=== PATIENT | male | born 1990 ===

== ENCOUNTER 2018-05-08 14:09 | Emergency (ER) | payer OTHER ==
--- NOTE | 2018-05-08 15:28 | ED PDOC ---
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 Pt says he first noticed a couple of puncture-like lesion on the right and lateral aspect of his neck. States it became very itchy and began to grow into a raised plaque after scratching and treating it with H202. Says over the course of a week, the rash spread to the scalp, arms, trunk and face. Reports the house he is demolishing has bed bugs, rats and cockroaches; pt reports having a new rabbit at home for the past week and cleans the cage daily. Denies fever chill, sob, cp, nausea, vomiting or diarrhea, insect bite, contact with shrubs travel or any other contributing factors. (Lyndsey Garcias) Past Medical History - Provider Review Nursing Documentation Reviewed: Yes - Travel History Have you recently traveled outside [place] w/in the past 3 mons?: No - Infectious Disease Hx of Infectious Diseases: None - Psychiatric Hx Substance Use: No - Anesthesia Hx Anesthesia: No Family/Social History - Physician Review Nursing Documentation Reviewed: Yes Family/Social History: Unknown Family HX Smoking Status: Former Smoker Hx Alcohol Use: No Frequency of alcohol use: Socially Hx Substance Use: No Allergies/Home Meds Allergies/Adverse Reactions: Allergies seasonal Allergy (Uncoded 05/08/18 14:26) CONGESTION Review of Systems - Review of Systems Constitutional: Normal. absent: Fatigue, Fevers Eyes: Normal. absent: Vision Changes ENT: Normal. absent: Hearing Changes Respiratory: Normal. absent: SOB, Cough, Sputum Cardiovascular: Normal. absent: Chest Pain Gastrointestinal: Normal. absent: Abdominal Pain Genitourinary Male: Normal. absent: Dysuria Musculoskeletal: Normal. absent: Arthralgias, Back Pain Skin: Rash, Pruritis, Skin Lesions, Cellulitis (right lateral neck) Neurological: Normal Endocrine: Normal Hemo/Lymphatic: Normal Psychiatric: Normal Physical Exam Temperature: Afebrile Blood Pressure: Normal Pulse: Regular Respiratory Rate: Normal Appearance: Positive for: Well-Appearing, Non-Toxic, Uncomfortable Pain Distress: None Mental Status: Positive for: Alert and Oriented X 3 - Systems Exam Head: Present: Atraumatic, Normocephalic Pupils: Present: PERRL Extroacular Muscles: Present: EOMI Conjunctiva: Present: Normal Mouth: Present: Moist Mucous Membranes Neck: Present: Normal Range of Motion. No: Meningeal Signs, MIDLINE TENDERNESS , Paraspinal Tenderness, Lymphadenopathy Respiratory/Chest: Present: Clear to Auscultation, Good Air Exchange. No: Respiratory Distress, Accessory Muscle Use, Wheezes, Decreased Breath Sounds, Rales, Retracting, Rhonchi, Tachypneic, Tender to Palpation Cardiovascular: Present: Regular Rate and Rhythm, Normal S1, S2. No: Murmurs Abdomen: No: Tenderness, Distention, Peritoneal Signs Back: Present: Normal Inspection Upper Extremity: Present: Normal Inspection, Normal ROM, NORMAL PULSES, Other ( multiple papules ranging in size from <1cm to large plaques). No: Cyanosis, Edema Lower Extremity: Present: Normal Inspection. No: Edema Neurological: Present: GCS=15, CN II-XII Intact, Speech Normal Skin: Present: Warm, Dry, Rashes (multiple papules that coalesce into plaques, dry except for recent excoriations), Normal Color, Erythematous, Other ( possible cellulitic area right lateral neck s/p repetitive excorations). No: Diaphoretic, Induration, Hot, Cold, Abscess Lymphatic: No: Cervical Adenopathy, Axillary Adenopathy Psychiatric: Present: Alert, Oriented x 3, Normal Insight, Normal Concentration , Normal Affect, Normal Mood Vital Signs Temp Pulse Resp BP Pulse Ox 05/08/18 17:43 98.5 F 72 18 126/72 99 05/08/18 14:21 98.4 F 80 18 105/84 98 Medical Decision Making ED Course and Treatment: 05/08/18 15:28 Impression Pt is a 28 yr old male with no PMH who presents with a generalized rash that started approximately one week ago after starting a house demolition. One exam, large erythematous plaque with excoriation at the center, defined border that extends toward the inferior and posterior aspects of the right lateral neck. Multiple small papules scattered over the face, scalp, arms, trunk with some coalescing into a plaque in area. No puncture wound visible over the primary site on the neck, no purulent discharge. 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 [place] (Lyndsey Garcias) - Medication Orders Current Medication Orders: Discontinued Medications Cephalexin Monohydrate (Keflex) 500 mg PO STAT STA PRN Reason: Protocol Stop: 05/08/18 15:43 Last Admin: 05/08/18 16:45 Dose: 500 mg Dexamethasone (Decadron Inj) 10 mg IM STAT STA Stop: 05/08/18 15:10 Last Admin: 05/08/18 15:45 Dose: 10 mg IM Administration Charges Document 05/08/18 15:45 HI (Rec: 05/08/18 15:45 HI [id number]) Injection Site MAR Injection Site Left Deltoid Charges for Administration # of IM Administrations 1 Diphenhydramine HCl (Benadryl) 50 mg PO STAT STA Stop: 05/08/18 15:21 Last Admin: 05/08/18 15:44 Dose: 50 mg Disposition/Present on Arrival - Present on Arrival Any Indicators Present on Arrival: Yes History of DVT/PE: No History of Uncontrolled Diabetes: No Urinary Catheter: No History of Decub. Ulcer: No History Surgical Site Infection Following: None - Disposition Have Diagnosis and Disposition been Completed?: Yes Disposition Time: 17:27 Patient Plan: Discharge - Disposition Diagnosis: Contact allergic reaction, Hypersensitivity reaction, Cellulitis Disposition: HOME/ ROUTINE Condition: STABLE Discharge Instructions (ExitCare): Contact Dermatitis (DC), Cellulitis (ED) Additional Instructions: JENNA SHELBY, thank you for letting us take care of you today. Your provider was Mateus Bautista MD and HOLLIS Garcias and you were treated for CONTACT DERMATITIS AND CELLULITIS. The emergency medical care you received today was directed at your acute symptoms. If you were prescribed any medication, please fill it and take as directed. It may take several days for your symptoms to resolve. Return to the Emergency Department if your symptoms worsen, do not improve, or if you have any other problems. PLEASE SEE THE LOGISTICS SUPPORT RECOMMENDED FOR FOLLOW UP CARE IN THE NEXT FEW DAYS. IF YOU EXPERIENCE WORSENING OF SYMPTOMS OR TROUBLE BREATHING, RETURN TO THE ER IMMEDIATELY Please contact your doctor or call one of the physicians/clinics you have been referred to that are listed on the Patient Visit Information form that is included in your discharge packet. Bring any paperwork you were given at discharge with you along with any medications you are taking to your follow up visit. Our treatment cannot replace ongoing medical care by a primary care provider outside of the emergency department. Thank you for allowing the [facility] team to be part of your care today. If you had an X-Ray or CT scan: A Radiologist will review the ED reading if any change in treatment is needed we will contact you. If you had a blood, urine, or wound culture: It will take several days for the results, if any change in treatment is needed we will contact you. Prescriptions: Cephalexin [Keflex] 500 mg PO Q6 5 Days #20 cap DiphenhydrAMINE [Benadryl] 25 mg PO Q8 #15 cap Hydrocortisone 59 ml TP Q6 #1 bottle Referrals: Chica Tyler MD [Primary Care Provider] - Follow up with primary Alfredo Sofia MD [Non-Staff] - Follow up with primary Forms: [employer] ([place]), WORK NOTE Addendum Addendum: 05/09/18 11:57 Pharmacist called regarding Hydrocortisone lotion. She asked me the strength, either 1 %, or 2.5%. I told that 1 % maybe better, since it has lower concentration. (Toby Blackman)
[2018-05-08 17:46] VITALS: BP 126/72; PULSE 72; RESP 18; TEMP 98.5; O2SAT 99
== END 2018-05-08 17:43 | disposition home or self-care (01) ==
LOC: ED 14:09 → MERGE 14:09 → ED 17:43
DX: T78.49XA Other allergy, initial encounter (principal); X58.XXXA Exposure to other specified factors, initial encounter; L03.818 Cellulitis of other sites
CPT/HCPCS: 96372; 99283; J1100

== ENCOUNTER 2018-05-11 15:47 | Emergency (ER) | payer OTHER ==
[2018-05-11 15:54] VITALS: BMI 36.6
[2018-05-11] MEDS ORDERED: DiphenhydrAMINE 50 mg/ml Inj IVP ONE (15:55)
[2018-05-11 15:59] VITALS: RESP 18
--- NOTE | 2018-05-11 16:00 | ED PDOC ---
Arrival/HPI - General Chief Complaint: Allergic Reaction Time Seen by Provider: 05/11/18 15:47 Historian: Patient, Other (Girlfriend) - History of Present Illness Time/Duration: Other (Approximately 10 days) Symptom Onset: Gradual Symptom Course: Worsening Severity Level: Severe Associated Symptoms (Text): 05/11/18 15:57 Patient complains of a severely pruritic rash for approximately 10 days. 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 He was seen in the emergency department and treated with IM Decadron and steroid lotion, but is getting worse. The rash is mostly on his right neck right upper extremity and right side and flank. Somewhat on his left upper extremity and minimally on the bilateral lower extremities. No dyspnea or dysphagia. He states that it becomes vesicle-like and pops with clear fluid. Appears consistent with a contact dermatitis. Past Medical History - Infectious Disease Hx of Infectious Diseases: None - Psychiatric Hx Substance Use: No - Anesthesia Hx Anesthesia: No Family/Social History - Physician Review Nursing Documentation Reviewed: Yes Family/Social History: Unknown Family HX Smoking Status: Former Smoker Hx Alcohol Use: No Hx Substance Use: No Allergies/Home Meds Allergies/Adverse Reactions: Allergies seasonal Allergy (Uncoded 05/11/18 15:59) CONGESTION Review of Systems - Physician Review All systems were reviewed & negative as marked: Yes - Review of Systems Constitutional: Normal ENT: Normal Respiratory: Normal Physical Exam Vital Signs Temp Pulse Resp BP Pulse Ox 05/11/18 15:56 98.5 F 111 H 18 127/44 L 98 Temperature: Afebrile Blood Pressure: Normal Pulse: Regular Respiratory Rate: Normal Appearance: Positive for: Well-Appearing, Non-Toxic, Uncomfortable Pain Distress: None Mental Status: Positive for: Alert and Oriented X 3 - Systems Exam Mouth: Present: Moist Mucous Membranes Pharnyx: No: ERYTHEMA, EXUDATE, TONSILS ENLARGED Respiratory/Chest: Present: Clear to Auscultation, Good Air Exchange. No: Respiratory Distress, Accessory Muscle Use Skin: Present: Warm, Dry, Rashes (Right-sided neck and right abdomen and right flank and right upper extremity erythematous raised excoriated vesicular rash consistent with contact dermatitis), Normal Color Medical Decision Making - Medication Orders Current Medication Orders: Discontinued Medications Diphenhydramine HCl (Benadryl) 50 mg IVP ONCE ONE Stop: 05/11/18 15:56 Last Admin: 05/11/18 16:30 Dose: 50 mg IVP Administration Document 05/11/18 16:30 EWO (Rec: 05/11/18 16:30 [facility] [id number]) Charges for Administration # of IVP Administrations 1 Methylprednisolone (Solu-Medrol) 125 mg IVP ONCE ONE Stop: 05/11/18 15:56 Last Admin: 05/11/18 16:30 Dose: 125 mg IVP Administration Document 05/11/18 16:30 EWO (Rec: 05/11/18 16:31 [facility] [id number]) Charges for Administration # of IVP Administrations 1 Disposition/Present on Arrival - Present on Arrival Any Indicators Present on Arrival: No History of DVT/PE: No History of Uncontrolled Diabetes: No Urinary Catheter: No History of Decub. Ulcer: No History Surgical Site Infection Following: None - Disposition Have Diagnosis and Disposition been Completed?: Yes Diagnosis: Contact dermatitis Disposition: HOME/ ROUTINE Disposition Time: 16:56 Patient Plan: Discharge Condition: FAIR Discharge Instructions (ExitCare): Contact Dermatitis (DC) Additional Instructions: Benadryl 50 mg every six hours. Tylenol OTC as directed on bottle. Follow up with your PMD and code enforcement officer. Follow up in the ER as needed. No scratching. [place] solution OTC as directed on bottle. Prescriptions: Prednisone [Deltasone] 60 mg PO DAILY #15 tablet Forms: [employer] (Lao)
[2018-05-11 17:09] VITALS: BP 132/79; PULSE 78; TEMP 98.6; O2SAT 99
== END 2018-05-11 17:08 | disposition home or self-care (01) ==
LOC: ED 15:47
DX: L25.9 Unspecified contact dermatitis, unspecified cause (principal); Z87.891 Personal history of nicotine dependence
CPT/HCPCS: 96374; 96375; 99283; J1200; J2930